=== PATIENT | male | born 1955 | race Caucasian/White ===

== ENCOUNTER → 2019-01-28 | Outpatient (CLI) | payer MEDICARE ==
[2005-12-29 10:50] VITALS: TEMP 98.1
== END ==
LOC: COL.RAD 06:37
DX: Z13.6 Encounter for screening for cardiovascular disorders (principal); I70.0 Atherosclerosis of aorta; Z87.891 Personal history of nicotine dependence

== ENCOUNTER → 2021-01-21 | Outpatient (CLI) | payer MEDICARE ==
[2005-12-29 10:50] VITALS: TEMP 98.1
== END ==
LOC: COL.RAD 14:18
DX: Z12.2 Encounter for screening for malignant neoplasm of respiratory organs (principal); I77.810 Thoracic aortic ectasia; Z87.891 Personal history of nicotine dependence

== ENCOUNTER 2023-09-28 17:03 | Observation (INO) | payer MEDICARE ==
[~2023-09-28] VITALS: Ht 188 cm; Wt 106.3 kg
[~2023-09-28 17:03] MED LIST: ATARAX 25MG25 MG/TAB PO; FLEXERIL 1010 MG/TAB PO; FLOMAX 0.40.4 MG/CAP PO; HCTZ 25MG TAB25 MG PO; NORVASC 5MG5 MG/TAB PO; PAXIL 30MG30 MG PO; PRAVACHOL 40MG40 MG PO; PRINIVIL10 MG PO; PROTONIX 40MG T40 MG PO; TYLENOL 325MG325 MG PO; WELLBUTRIN SR150 M1 PO; XANAX 1MG1 MG PO; ZETIA 10MG TAB10 MG PO; ZYRTEC 10MG10 MG PO
[2023-09-28 18:13] LABS: BASO # 0.1 K/mm3 (0.0-0.2); BASO % 1.4 % (0.0-2.0); EOS % 0.9 % (0.0-4.0); LYMPH # 0.9 K/mm3 (1.2-3.4); LYMPH % 26.6 % (20.0-51.0); MEAN CELL VOLUME 76 fl (80.0-100.0); MEAN CORPUSCULAR HGB CONC 30 g/dl (33.0-37.0); MONO # 0.5 K/mm3 (0.1-0.6); MONO % 13.8 % (1.7-9.3); PLATELET COUNT 193 K/mm3 (130-400); RED BLOOD COUNT 2.79 M/mm3 (4.20-5.60); REDCELL DISTRIBUTION WIDTH-CV 15.4 % (11.5-14.5)
[2023-09-28 18:14] LABS: HEMATOCRIT 21.1 % (42.0-52.0); MEAN CORPUSCULAR HEMOGLOBIN 23 pg (27-31)
[2023-09-28 18:16] LABS: HEMOGLOBIN 6.4 g/dl (13.5-18.0)
[2023-09-28 18:39] LABS: ALANINE AMINOTRANSFERASE 25 U/L (0-55); ALBUMIN 3.4 g/dL (3.4-4.8); ALKALINE PHOSPHATASE 84 U/L (40-150); ANION GAP 10 mmol/L (7-16); AST,SGOT 25 U/L (5-34); BILIRUBIN,TOTAL 0.2 mg/dL (0.2-1.2); BLOOD UREA NITROGEN 10 mg/dL (8-26); CALCIUM 9.1 mg/dL (8.4-10.2); CHLORIDE 102 mEq/L (98-107); CREATININE, serum 0.88 mg/dL (0.72-1.25); GLUCOSE 89 mg/dL (70-99); SODIUM 135 mEq/L (136-145); TOTAL PROTEIN 6.3 g/dl (6.2-8.1)
[2023-09-28 19:06] LABS: TROPONIN-I < 0.010 ng/mL (0.00-0.033)
[2023-09-28] MEDS ORDERED: Acetaminophen 325 MG TAB PO PRN (19:45)
[2023-09-28] MEDS ORDERED: SINGULAIR 110 MG/TAB PO (19:57)
[2023-09-28] MEDS ORDERED: ASPIRIN 81M81 MG/TA2 PO (19:59)
[2023-09-28] MEDS ORDERED: XARELTO20 MG PO (20:04)
[2023-09-28] MEDS ORDERED: Cyclobenzaprine 10 MG TAB PO PRN (20:15)
[2023-09-28] MEDS ORDERED: ALPRAZolam 0.5 MG TAB PO SCH (21:00)
[2023-09-28] MEDS ORDERED: Montelukast 10 MG TAB PO SCH (21:00)
[2023-09-28 21:17] VITALS: BP 135/72; PULSE 90; TEMP 98.2
[2023-09-28 21:35] VITALS: BP 141/89; PULSE 85; TEMP 98
[2023-09-28 22:20] VITALS: BP 147/73; PULSE 83; TEMP 99.2
[2023-09-28] MEDS ORDERED: PROAIR HFA0.09 MG/AC IH (22:32)
--- NOTE | 2023-09-28 23:02 | NUR ---
Patient arrived to medical unit from ER at approximately 2220. Alert and oriented, and able to make needs known. Denies having pain and discomfort. Peripheral IV to left AC with blood running, rate at 125 ml/hr. Denies SOB and dyspnea. LS CTA. HRR. BSAx4. Denies blood stools. Aware of need for stool sample to check for blood. No edema. Voices no questions, needs, or concerns at this time. In bed with call light within reach.
[2023-09-28 23:20] VITALS: BP 142/72; PULSE 76; TEMP 98.5
[2023-09-28 23:28] VITALS: BP 135/70; PULSE 76; TEMP 98.5
[2023-09-29] VITALS (12 sets, daily range): BP systolic 126–152; BP diastolic 68–78; PULSE 65–80; TEMP 98.1–99.3
[2023-09-29 01:12] LABS: HEMATOCRIT 20.7 % (42.0-52.0); HEMOGLOBIN 6.6 g/dl (13.5-18.0)
--- NOTE | 2023-09-29 01:17 | NUR ---
[facility] [place] called to YOVANA Almendarez.
--- NOTE | 2023-09-29 06:12 | NUR ---
2nd unit of blood completed, tolerated well. No adverse effects noted. H&H scheduled for 0630. Patient voices no questions, needs, or concerns at this time. In bed with call light within reach.
[2023-09-29 07:14] LABS: CALCIUM 9.2 mg/dL (8.4-10.2); CREATININE, serum 0.78 mg/dL (0.72-1.25); POTASSIUM 3.9 mEq/L (3.5-4.5)
[2023-09-29 07:17] LABS: BASO % 1.1 % (0.0-2.0); EOS # 0.1 K/mm3 (0.0-0.7); EOS % 3.6 % (0.0-4.0); GRAN # 1.3 K/mm3 (1.4-6.5); GRAN % 46.2 % (42.2-75.2); LYMPH # 0.9 K/mm3 (1.2-3.4); LYMPH % 32.5 % (20.0-51.0); MEAN CELL VOLUME 76 fl (80.0-100.0); MEAN CORPUSCULAR HGB CONC 32 g/dl (33.0-37.0); MEAN PLATELET VOLUME 9.5 fl (7.4-10.4); MONO # 0.5 K/mm3 (0.1-0.6); MONO % 16.6 % (1.7-9.3); PLATELET COUNT 166 K/mm3 (130-400); RED BLOOD COUNT 3.23 M/mm3 (4.20-5.60); REDCELL DISTRIBUTION WIDTH-CV 15.9 % (11.5-14.5)
[2023-09-29 07:18] LABS: HEMATOCRIT 24.6 % (42.0-52.0); HEMOGLOBIN 7.8 g/dl (13.5-18.0); MEAN CORPUSCULAR HEMOGLOBIN 24 pg (27-31)
[2023-09-29] MEDS ORDERED: Pantoprazole 40 MG in NS 10 ML IV SCH (09:00)
[2023-09-29] MEDS ORDERED: hydrOXYzine HCl 25 MG TAB PO SCH (09:00)
[2023-09-29] MEDS ORDERED: Cetirizine 10 MG TAB PO SCH (09:00)
[2023-09-29] MEDS ORDERED: amLODIPine 5 MG TAB PO SCH (09:00)
[2023-09-29] MEDS ORDERED: hydroCHLOROthiazide 25 MG TAB PO SCH (09:00)
[2023-09-29] MEDS ORDERED: PARoxetine HCL 10 MG TABLET PO SCH (09:00)
[2023-09-29] MEDS ORDERED: Ezetimibe 10 MG TAB PO SCH (09:00)
[2023-09-29] MEDS ORDERED: buPROPion SR (12-HR) 150 MG TAB PO SCH (09:00)
[2023-09-29] MEDS ORDERED: Lisinopril 10 MG TAB PO SCH (09:00)
--- NOTE | 2023-09-29 09:20 | NUR ---
PATIENT SITTING UP IN RECLINER UPON ENTERING ROOM. MORNING MEDICATIONS ADMINISTERED. PATIENT REPORTS SOME EPIGASTRIC DISCOMFORT, REQUESTS TUMS, THIS RN CONTACTED PHYSICIAN AND PROVIDED MEDICATION PER eMAR. UPDATED ON PLAN OF CARE. PATIENT DENIES ANY ADDITIONAL NEEDS AT THIS TIME. WILL CONTINUE TO MONITOR.
[2023-09-29] MEDS ORDERED: PROTONIX 40MG T40 MG PO (12:25)
--- NOTE | 2023-09-29 12:25 | NUR ---
Data: Patient accepted Rn Liaison visit offered during Rn Liaison rounds. Patient stated that he is not lutheran, but does believe in a higher power. Patient enjoys conversation. Patient requested assistance in spelling a provider's name so that he could look the provider up on the Internet. Patient stated several times during visit that he wanted to have some "chewing tobacco." Patient stated several times during visit that he would like to go home today. Assessment: Patient stated he has anxiety. Patient desires to be discharged. Plan of Care: Rn Liaison provided supportive listening as Patient reviewed his life and processed his potential treatment plan. Patient thanked Rn Liaison for the visit. Chaplains will remain available as needed/requested while Patient is admitted to this hospital.
[2023-09-29] MEDS ORDERED: FERRO-TIME325 MG PO (12:41)
--- NOTE | 2023-09-29 12:56 | NUR ---
SW met with patient to complete initial assessment for discharge planning. Patient verified that he lives alone in [place] at [facility]. He lists his daughter Renee Villeda ([phone]) and sister Alexi Mosher ([phone]) as his emergency contacts. He states his son Micky is his DPOA. Encouraged patient to bring copy to hospital for his chart. Patient sees Dr. Saldaña as his PCP and uses [facility]. Patient denies using any DME and states his apartment is handicapped equipped. Patient plans to return home at discharge and states he will drive himself home. Discharge plan: Home
[2023-09-29] MEDS ORDERED: Iron Sucrose 200 MG in NS 100 ML Over 15 minutes IV SCH (13:00)
--- NOTE | 2023-09-29 13:17 | NUR ---
DISCHARGE INSTRUCTIONS REVIEWED, ALL QUESTIONS ANSWERED. IV REMOVED. PATIENT WILL BE ESCORTED DOWN BY [facility]IA [facility] STAFF.
--- NOTE | 2023-09-29 13:41 | NUR ---
PATIENT ESCORTED OFF OF UNIT BY VIA [facility] STAFF.
[2023-09-29] MEDS ORDERED: Pravastatin 20 MG TAB PO SCH (21:00)
== END 2023-09-29 13:39 | disposition home or self-care (01) ==
LOC: COL.ER 17:03 → MEDICAL 20:06
PROVIDERS: Nurse Practitioner Family; Nurse Practitioner Primary Care; ADMIT Internal Medicine
DX: D50.9 Iron deficiency anemia, unspecified (principal); C61 Malignant neoplasm of prostate; I82.621 Acute embolism and thrombosis of deep veins of right upper extremity; D72.819 Decreased white blood cell count, unspecified; I10 Essential (primary) hypertension; E78.5 Hyperlipidemia, unspecified; F41.9 Anxiety disorder, unspecified; Z79.01 Long term (current) use of anticoagulants; Z79.899 Other long term (current) drug therapy
CPT/HCPCS: C9113; G0378; J1756; P9016

== ENCOUNTER 2023-10-03 09:39 | Outpatient (RCR) | payer MEDICARE ==
[~2023-10-03] VITALS: Ht 188 cm; Wt 105.0 kg
[~2023-10-03 09:39] MED LIST changes: +ASPIRIN 81M81 MG/TA2 PO; +FERRO-TIME325 MG PO; +PROAIR HFA0.09 MG/AC IH; +SINGULAIR 110 MG/TAB PO; +XARELTO20 MG PO
[2023-10-03] MEDS ORDERED: IRON SUCROSE IV ONE (10:15)
[2023-10-03] MEDS ORDERED: NS IV ONE (10:15)
[2023-10-03 10:42] VITALS: BP 134/79; PULSE 95; TEMP 98.4
== END 2023-10-03 11:00 | disposition home or self-care (01) ==
LOC: EUO 09:39
DX: D50.9 Iron deficiency anemia, unspecified (principal)
CPT/HCPCS: J1756